=== PATIENT | male | born 1970 | race Two or more races ===

== ENCOUNTER 2017-11-29 16:24 | Emergency (ER) | payer MEDICAID ==
[~2017-11-29] VITALS: Ht 175.3 cm; Wt 79.4 kg
--- NOTE | 2017-11-29 16:25 | NUR ---
BBRA 860 FROM [facility] FOR BEING AGITATED, COMBATIVE, SPITTING. PT ON 5150 HOLD PLACED BY [employer] FOR DTS. A/OX 3, BREATHING EVEN AND UNLABORED. NO SOB. NAD, VITALS STABLE. PATIENT NON-COOPERATIVE, PLACED INTO STRETCHER, WITH RESTRAINTS PER MD ORDERS. SAFETY AND COMFORT MEASURES IN PLACE. AWAITING MD ORDERS.
[2017-11-29] MEDS ORDERED: HALOPERIDOL LACTATE INJ 5 MG/ML VIAL ONE (16:34)
[2017-11-29] MEDS ORDERED: LORAZEPAM INJ 2 MG/ML VIAL ONE (16:34)
[2017-11-29] MEDS ORDERED: diphenhydrAMINE HCL 50 MG/ML VIAL ONE (16:34)
--- NOTE | 2017-11-29 16:38 | NUR ---
PATIENT MEDICATED PER MD ORDERS.
[2017-11-29] MEDS ORDERED: diphenhydrAMINE HCL 50 MG/ML VIAL IM ONE (17:00)
[2017-11-29] MEDS ORDERED: HALOPERIDOL LACTATE INJ 5 MG/ML VIAL IM ONE (17:00)
[2017-11-29] MEDS ORDERED: LORAZEPAM INJ 2 MG/ML VIAL IM ONE (17:00)
[2017-11-29] MEDS ORDERED: KETOROLAC TROMETHAMINE INJ 30 MG/ML VIAL ONE (17:43)
[2017-11-29] MEDS ORDERED: KETOROLAC TROMETHAMINE INJ 60 MG/2 ML VIAL IM ONE (18:00)
[2017-11-29 18:17] LABS: BASOPHILS % (AUTO) 0.8 % (0.0-2.0); EOSINOPHILS # (AUTO) 0.1 /CMM (0.0-0.7); EOSINOPHILS % (AUTO) 2.5 % (0.0-6.0); HEMATOCRIT 36 % (39-51); HEMOGLOBIN 12.5 g/dL (13.5-17.5); LYMPHOCYTES # (AUTO) 1.5 /CMM (0.8-4.8); LYMPHOCYTES % (AUTO) 28.8 % (20.0-44.0); MEAN CORPUSCULAR HEMOGLOBIN 33 PG (26.0-33.0); MEAN CORPUSCULAR HGB CONC 35 g/dl (31.0-36.0); MEAN CORPUSCULAR VOLUME 93 fL (80-96); MONOCYTES # (AUTO) 0.6 /CMM (0.1-1.30); MONOCYTES % (AUTO) 10.9 % (2.0-12.0); PLATELET COUNT (AUTO) 272 /CMM (150-450); RDW COEFFICIENT OF VARIATION 12.7 (11.5-15.0); RED BLOOD CELL COUNT(AUTO) 3.83 MIL/uL (4.5-6.0); WHITE BLOOD COUNT (AUTO) 5.2 K/uL (4.3-11.0)
[2017-11-29 18:41] LABS: CALCIUM, SERUM 8.8 mg/dL (8.5-10.1); CARBON DIOXIDE 26 mmol/L (21-32); CHLORIDE 107 mmol/L (98-107); CREATININE 0.9 mg/dL (0.6-1.3); GLUCOSE 80 mg/dL (74-106); POTASSIUM 3.4 mmol/L (3.5-5.1); SODIUM SERUM 143 mmol/L (136-145); UREA NITROGEN, BLOOD 19 mg/dL (7-18)
[2017-11-29 18:49] LABS: ALANINE AMINOTRANSFERASE 17 U/L (12-78); ALBUMIN 3.5 g/dL (3.4-5.0); ALCOHOL, BLOOD < 3 mg/dL (0-0); ALKALINE PHOSPHATASE 41 U/L (46-116); ASPARTATE AMINOTRANSFERASE 17 U/L (15-37); BILIRUBIN,DIRECT 0.1 mg/dL (0.0-0.2); BILIRUBIN,TOTAL 0.4 mg/dL (0.2-1.0); SALICYLATE 8.1 mg/dL (2.8-20.0); TOTAL PROTEIN, SERUM 6.9 g/dL (6.4-8.2)
[2017-11-29 18:55] LABS: ACETAMINOPHEN < 2 ug/ml (10-30)
--- NOTE | 2017-11-29 19:28 | NUR ---
REPORT GIVEN TO ISABELL NEVAREZ FOR AV.
--- NOTE | 2017-11-29 19:54 | NUR ---
URINE SAMPLE COLLECTED AND SENT TO LAB.
[2017-11-29 20:11] LABS: APPEARANCE,URINE Cloudy (CLEAR); BILIRUBIN,URINE SMALL (NEGATIVE); BLOOD, URINE Negative Ery/uL (NEGATIVE); COLOR,URINE Yellow (YELLOW); KETONES,URINE Negative (NEGATIVE); LEUKOCYTE ESTERASE ,URINE Negative (NEGATIVE); NITRITE, URINE Negative (NEGATIVE); PH,URINE 5.5 (5.0-8.0); PROTEIN,URINE 30 mg/dl (NEGATIVE); UGLUCOSE Negative (NEGATIVE); UROBILINOGEN,URINE 0.2 EU/dL (0.2)
[2017-11-29 20:24] LABS: BACTERIA,URINE Rare /HPF (None Seen); RBC,URINE NONE SEEN /HPF (0-2); SQUAMOUS EPITHELIAL CELL,UR Rare /HPF (None Seen); WBC,URINE 0-2 /HPF (0-3)
[2017-11-29 20:25] LABS: CALCIUM OXALATE CRYSTALS,UR Few /HPF (None Seen); URINE AMORPHOUS URATE Few /HPF (None Seen)
--- NOTE | 2017-11-29 22:19 | NUR ---
Patient is resting comfortably in bed with eyes closed. Easily aroused. VSS
--- NOTE | 2017-11-29 23:00 | NUR ---
Patient is resting comfortably in bed with eyes closed. Easily aroused. VSS
--- NOTE | 2017-11-29 23:08 | NUR ---
[facility] WAS CALLED AND SPOKE TO DISPATCHER CARLOS FOR A BLS TRANSPORT. ETA [employer] TIME OF 00:30 WAS GIVEN. TRIP #[id number]
--- NOTE | 2017-11-30 00:33 | NUR ---
Patient is resting comfortably in bed with eyes closed. Easily aroused. VSS
--- NOTE | 2017-11-30 01:13 | NUR ---
[facility] BEDSIDE FOR PT TRANSPORT
[2017-11-30 01:15] VITALS: BP 95/56
== END 2017-11-30 01:18 ==
LOC: ER 16:27
DX: S39.012A Strain of muscle, fascia and tendon of lower back, initial encounter (principal); F91.9 Conduct disorder, unspecified; Z59.0 Homelessness; V89.2XXA Person injured in unspecified motor-vehicle accident, traffic, initial encounter; Y92.89 Other specified places as the place of occurrence of the external cause; Y93.89 Activity, other specified; Y99.8 Other external cause status
CPT/HCPCS: 36415; 80048-TC; 80076-TC; 80305; 81000-TC; 85025-TC; A4606; G0480; J1200; J1630; J1885; J2060; Z7610